=== PATIENT | female | born 1985 | race Caucasian/White ===

== ENCOUNTER 2021-11-28 16:45 | Emergency (ER) | payer BC ==
[~2021-11-28 16:45] MED LIST: LODINE CAP 300300 MG PO; ZOFRAN ODT 4 MG4 MG PO
[2021-11-28 17:40] LABS: HEMOGLOBIN 14.4 gm/dl (12.3-15.3); RED BLOOD COUNT 4.73 M/UL (4.00-5.10); WHITE BLOOD COUNT 10.5 K/UL (4.5-11.0)
[2021-11-28 17:58] LABS: BUN/CREATININE RATIO 14 (0-10)
[2021-11-28] MEDS ORDERED: DOXYCYCLINE MO100 MG PO (21:26)
== END 2021-11-28 21:38 | disposition home or self-care (01) ==
LOC: ER1 16:45
PROVIDERS: Emergency Medicine
DX: J18.9 Pneumonia, unspecified organism (principal); R07.89 Other chest pain
CPT/HCPCS: 71045; 80053; 82550; 82553; 83874; 84484; 84703; 85025; 93005; 96374; 99285; J2060